=== PATIENT | female | born 1955 | race Two or more races ===

== ENCOUNTER 2020-04-23 13:55 | Inpatient (IN) | payer OTHER ==
[~2020-04-23] VITALS: Ht 162.6 cm; Wt 74.8 kg
[2020-04-23] MEDS ORDERED: PLAVIX75 MG (14:20)
[2020-04-23] MEDS ORDERED: METFORMIN HCL1000 MG (14:21)
[2020-04-23] MEDS ORDERED: VASOTEC10 MG (14:21)
[2020-04-23] MEDS ORDERED: HYDROCHLOROTHIA25 MG (14:22)
[2020-04-23] MEDS ORDERED: LIPITOR40 M1 (14:22)
[2020-04-23] MEDS ORDERED: LANTUS SOL100 UNIT/1 (14:23)
[2020-04-23] MEDS ORDERED: NORVASC10 MG (14:23)
[2020-04-23] MEDS ORDERED: HUMALOG100 UNIT/1 (14:23)
[2020-04-23] MEDS ORDERED: TOPROL XL50 M1 (14:24)
[2020-04-23] MEDS ORDERED: ALDACTONE25 MG (14:24)
== END 2020-04-29 19:41 | disposition home or self-care (01) | DRG 378 ==
LOC: ER 13:55 → SURG 19:27
PROVIDERS: ADMIT Internal Medicine; ATTEND Internal Medicine
PROC: BW21ZZZ Computerized Tomography (CT Scan) of Abdomen and Pelvis (ICD-10-PCS; principal; 2020-04-24)
PROC: 30233N1 Transfusion of Nonautologous Red Blood Cells into Peripheral Vein, Percutaneous Approach (ICD-10-PCS; 2020-04-25)
DX: K29.81 Duodenitis with bleeding (principal); D62 Acute posthemorrhagic anemia; K26.0 Acute duodenal ulcer with hemorrhage; I10 Essential (primary) hypertension; D50.8 Other iron deficiency anemias; E78.49 Other hyperlipidemia; E11.65 Type 2 diabetes mellitus with hyperglycemia; Z79.4 Long term (current) use of insulin